=== PATIENT | male | born 1975 | race Caucasian/White ===

== ENCOUNTER 2017-03-18 21:16 | Emergency (ER) | payer OTHER ==
[~2017-03-18] VITALS: Ht 182.9 cm; Wt 68.2 kg
[2017-03-18 21:20] VITALS: BP 149/60; PULSE 71; RESP 20; O2SAT 100
--- NOTE | 2017-03-18 21:36 | ED.REPORT ---
HPI-Trauma Minor / Fall Date of Service Mar 18, 2017 ED Provider: Jensen Nolasco DO Patient is a 41 year old male who presents to the ED due to a fall. Associated symptoms include nausea, vomiting, lip pain, feeling faint and left wrist pain. Per the patient's , the patient looks pale and thinks "he is in shock" as he continued to repeat the same thing. The patient was up at least 2 feet building a play set and had an unwitnessed fall. Patient does not remember the event and is unsure if he hit his head. He denies head pain. Nursing Notes Stated Complaint: BROKEN WRIST, HEAD INJURY, IN SHOCK Chief Complaint: Multiple Trauma/Fall Nursing Notes Reviewed: Yes Allergies: Coded Allergies: gluten (Verified Allergy, Mild, 03/18/17) General Time Seen by MD: 21:34 Chief Complaint Fall Hx Obtained From: Patient, Spouse Arrived By: Walk-in Onset Occurred: Just prior to arrival Symptom Duration: Since onset Caused by: Fall from height... (< 3 feet) Location: Wrist left Quality: Painful Severity: Current: Moderate Recent Healthcare: No recent doctor visit, No recent hospitalization Similar Sx Previous: No Past Medical History Past Medical History none reported Smoking History Unknown if Ever Smoker Social History Other Social History: Good social support, , Lives with children Ambulatory Status Independent Review of Systems Constitutional: Denies: Chills, Fever Respiratory: Denies: Non-productive cough, Shortness of breath Musculoskeletal: Reports: Extremity pain (left wrist) Neurologic: Reports: Lightheaded, Denies: Change LOC, Headache, Problem walking Complete sys rev & neg: except as marked. GI: Reports: Nausea, Vomiting Physical Exam Initial Vital Signs Vital Signs (First) Date Time Temp Pulse Resp B/P Pulse Ox O2 Delivery O2 Flow Rate FiO2 03/18/17 21:20 36.2 71 20 149/60 100 Room Air Initial VS: Reviewed General/Constitutional: Awake, Alert Neck: Atraumatic, Supple, Full range of motion Head / Eyes: Atraumatic, Normocephalic, PERRL, EOMI Respiratory / Chest: Atraumatic, Breath sounds NL, Breath sounds = bilat, No respiratory distress Cardiovascular: Heart rate NL, Regular rhythm, Heart sounds NL Abdomen: Atraumatic, Soft, Non-tender Upper Extremity / MS: Atraumatic, Full range of motion WRIST: extreme tenderness of the left wrist Lower Extremity / Pelvis / MS: Atraumatic, Full range of motion Skin: Atraumatic, Color NL, No rash, Warm, Dry Neurologic: Oriented X3, Speech NL, No motor deficits, No sensory deficits patient reports being able to remember up until the fall but not the fall. Psychiatric: Affect NL, Mood NL Interpretation & Diagnostics Lab Results Interpretation Test 03/18/17 21:30 Hold Purple Top Tube Received (Received) Hold Blue Top Tube Received (Received) Hold Stevens Top Tube Received (Received) Hold Robles Top Tube Received (Received) X-Ray Interpretation Xray Interpretation: IMPRESSION: 1. Mildly comminuted and angulated fracture of the distal radius with articular extension. Dictated by: Ayaz Correa M.D. on 03/18/2017 at 22:13 Approved by: Ayaz Correa M.D. on 03/18/2017 at 22:26 X-Ray Ordered: Wrist left Interpretation / Wet Read by: Interpret - Radiologist CT Head Interpretation IMPRESSION: 1. No acute intracranial abnormality. Dictated by: Ayaz Correa M.D. on 03/18/2017 at 21:58 Approved by: Ayaz Correa M.D. on 03/18/2017 at 22:00 Interpretation / Wet Read by: Interpret - Radiologist Procedures Splint Application - Fx Mgt Time: 22:36 Procedure Performed by: ED physician, Nurse Precise Anatomic Location: left wrist Type of Immobilization: Ortho-glass, Sugar tong Definitive Fracture Care: Pain control, Splint, Follow up > 4 days Post-Procedure / Complications: Cap refill normal, Post splint vascular nl, Post splint neuro nl, Condition improved, Tolerated procedure well, Patient stable Re-Eval/Medical Decision Med Decision/Clinical Course This gentleman still had some anterograde amnesia consistent with concussion. The wrist felt much better after splinting. Pre-severe nausea. This may be multifactorial from the head injury and opiates. Either way he was neurovascularly intact. He had a GCS of 15. Normal brain scan. Cervical spine was cleared clinically. No distracting injury. He was awake sober and lucid. No neck pain and no midline tenderness. CT of his cervical spine not indicated. I consulted with Dr. Mendez. She will follow-up with him next week in the office. Re-Evaluation/Progress #1: Time of Eval: 22:00 Re-Evaluation/Progress Note: Discussed CT results. Re-Evaluation/Progress #2: Time of Eval: 22:20 Re-Evaluation/Progress Note: Discussed X-ray results and plan for follow up outpatient with ortho. Patient understands and agrees to plan. All questions were addressed. Consultation : Referral / Consult Name: Dino Mendez MD Consulted With: Orthopedic Call Returned at: 22:15 Global Climate Change Analyst: Will see in office, Agrees with eval, Agrees with plan Counseled Regarding: Diagnosis, Lab results, Need for follow-up, When/why to return to ED Discharge & Departure Impression: Primary Impression: Left wrist fracture Encounter type: initial encounter Fracture type: closed Qualified Code: S62.102A - Fracture of unspecified carpal bone, left wrist, initial encounter for closed fracture Additional Impressions: Fall Encounter type: initial encounter Qualified Code: W19.XXXA - Unspecified fall, initial encounter Head contusion Encounter type: initial encounter Contusion of head detail: unspecified part of head Qualified Code: S00.93XA - Contusion of unspecified part of head , initial encounter Concussion Encounter type: initial encounter Loss of consciousness presence/duration: without LOC Qualified Code: S06.0X0A - Concussion without loss of consciousness, initial encounter Disposition: Home Discharge Condition All VS Reviewed: Yes Condition: Stable Patient Instructions: Concussion (ED), Splint Care (ED), Wrist Fracture in Adults (ED) Additional Instructions: Your X-ray showed a fracture in your left wrist. Do not drive tonight, as you received pain medication in the ED. Do not engage in any activities that could lead to a second head injury. You can take 1-2 [place] every 6 hours as needed for pain. Do not drink alcohol or drive while taking the medication. Do not combine the pain medication with Acetaminophen. Wear the splint until you are cleared by ortho next week. I spoke with Dr. Mendez, an orthopedic doctor who will see you in the clinic next week for follow up. Call the office on Monday to schedule an appointment. Attached is a referral for her office. Return to emergency department if you develop any new or concerning symptoms. Referrals: Dino Mendez MD Scribe Attestation Portions of this note were transcribed by Hollie Rachel. I, Dr. Beia personally performed the history, physical exam and medical decision-making; I reviewed and confirmed the accuracy of the information in the transcribed note. Signed by: Jazmín Hardy, 03/18/17 and 2219 copies to: Dino Mendez MD, Todd P DO Mar 18, 2017 21:36 Hodan Rachel Mar 18, 2017 22:00
[2017-03-18] MEDS: Ondansetron 2 mg/mL 2 mL Inj IVPUSH PRN ×2 (21:45→23:15)
[2017-03-18] MEDS: HYDROmorphone 0.5 mg/0.5 mL iSecure Syringe IVPUSH PRN ×2 (21:45→22:16)
--- NOTE | 2017-03-18 22:01 | DRSVH ---
PROCEDURE: CT BRAIN WITHOUT CONTRAST ([id number]) INDICATIONS: head injury, perseveration TECHNIQUE: Noncontrast 4.5 mm thick angled axial sections acquired from the foramen magnum to the vertex, with c oronal reformats. COMPARISON: None. FINDINGS: Image quality: Excellent. CSF spaces: Basal cisterns are patent. No extra-axial fluid collections. Ventricles are normal in size and shape. Brain: No intracranial hemorrhage, mass, or mass effect. Michael-white matter interface is preserved. Skull and face: Calvarium and visualized facial bones are intact, without suspicious lesions. Sinuses: Visualized sinuses and mastoids are clear. IMPRESSION: 1. No acute intracranial abnormality. Dictated by: Ayaz Correa M.D. on 03/18/2017 at 21:58 Approved by: Ayaz Correa M.D. on 03/18/2017 at 22:00
[2017-03-18] MEDS ORDERED: HYDROmorphone 1 mg/mL Inj IVPUSH ONE (22:20)
--- NOTE | 2017-03-18 22:27 | DRSVH ---
PROCEDURE: X-RAY LEFT WRIST COMPLETE, MINIMUM THREE VIEWS ([id number]) INDICATIONS: fall with deformity and pain TECHNIQUE: 4 views of the wrist were acquired. COMPARISON: None. FINDINGS: Bones: There is a comminuted impacted fracture of the distal radius extending to the radiocarpal and distal radioulnar joints. There is mild dorsal angulation of the distal component. Scaphoid view: The scaphoid appears intact Soft tissues: There is periarticular soft tissue swelling. No suspicious soft tissue calcifications . IMPRESSION: 1. Mildly comminuted and angulated fracture of the distal radius with articular extension. Dictated by: Ayaz Correa M.D. on 03/18/2017 at 22:13 Approved by: Ayaz Correa M.D. on 03/18/2017 at 22:26
[2017-03-18 22:43] VITALS: BP 132/81; PULSE 70; RESP 18; O2SAT 97
[2017-03-18] MEDS ORDERED: _HYDROcodone/APAP 5-325 mg Tablet PO PRN (22:45)
[2017-03-18] MEDS ORDERED: _Ondansetron ODT 4 mg Tablet PO PRN (23:25)
[2017-03-18 23:53] VITALS: BP 137/73; PULSE 52; RESP 16; O2SAT 95
[2017-03-19 01:01] VITALS: BP 136/94; PULSE 49; RESP 16; O2SAT 95
[2017-03-23] MEDS ORDERED: TERB250T4 PO (11:10)
[2017-03-23] MEDS ORDERED: HYDR-4003 PO (11:10)
== END 2017-03-19 01:00 | disposition home or self-care (01) ==
LOC: SED 21:16
DX: S52.592A Other fractures of lower end of left radius, initial encounter for closed fracture (principal); S06.0X0A Concussion without loss of consciousness, initial encounter; W17.89XA Other fall from one level to another, initial encounter; Y93.89 Activity, other specified; Y99.8 Other external cause status; Y92.017 Garden or yard in single-family (private) house as the place of occurrence of the external cause; Z88.5 Allergy status to narcotic agent; Z88.8 Allergy status to other drugs, medicaments and biological substances
CPT/HCPCS: 25600; 70450; 73110; 96374; 96375; 96376; 99285; J1170; J2250; J2405

== ENCOUNTER → 2017-03-24 | Day surgery (SDC) | payer OTHER ==
[~2017-03-24] VITALS: Ht 181.6 cm; Wt 68.5 kg
[2017-03-24] VITALS (13 sets, daily range): BP systolic 141–173; BP diastolic 70–126; PULSE 49–88; RESP 11–22; O2SAT 96–100
[~2017-03-24] MED LIST: Bupivacaine-MPF 0.5% 30 mL Inj INFILTRATE ONE; CeFAZolin 2 Gm/50 mL D5W IV Premix IV ONE; Dexamethasone 4 mg/mL Inj IVPUSH PRN; EPHEDrine Sulfate 50 mg/mL Inj IVPUSH PRN; HYDR-4003 PO; HYDROcodone-APAP 5-325 mg Tablet PO PRN; HYDROmorphone 1 mg/mL Inj IVPUSH PRN; Lactated Ringer's 1,000 ML IV ONE; Lactated Ringer's 1,000 ML IV SCH; Lactated Ringer's 500 ML IV PRN; MetoCLOpramide 5 mg/mL 2 mL Inj IVPUSH PRN; Ondansetron 2 mg/mL 2 mL Inj IVPUSH PRN; Ondansetron 2 mg/mL 2 mL Inj ONE; Phenylephrine 10,000 mCg/mL Inj IVPUSH PRN; Propofol 10,000 mCg/mL 20 mL Inj ONE; TERB250T4 PO; fentaNYL-PF 50 mCg/mL 2 mL Inj IVPUSH PRN; fentaNYL-PF 50 mCg/mL 2 mL Inj ONE; hydrOXYzine Inj 50 MG/1 mL SDV IM ONE; hydrOXYzine Inj 50 MG/1 mL SDV IM PRN
--- NOTE | 2017-03-24 07:08 | PCM.HPANE ---
Patient Data Date of Service: Mar 24, 2017 Surgeon Admitting Provider: Attending Provider:Dino Mendez MD Primary Care Physician:Wilfredo Sanchez DO Other Provider:Gerardo Quintana Anesthesia Reason for Visit Left Distal Radial Fracture Ht/WT & BMI Height (Feet): 5 Height (Inches): 11.5 Weight (Kilograms): 70.5 Body Mass Index 20.00, 21.00 Allergies Coded Allergies: acetaminophen (Verified Allergy, Unknown, UNKNOWN (FROM PERCOCET), ) gluten (Verified Allergy, Unknown, UNKNOWN (MILD), 03/23/17) oxycodone (Verified Allergy, Unknown, UNKNOWN, 03/23/17) Past Anesthesia History Anesthesia History: Denies:: Fam Anesthesia Reaction, Fam Malignant Hypertherm Diabetes History Hx Diabetes?: No MRSA MRSA: No Medications Reported Medications Hydrocodone-Acetaminophen 5-325 mg 1 Each Tablet1-2 Tablet PO Q6H PRN For Pain Ref 0 03/23/17 Discontinued Reported Medications Terbinafine (Lamisil)250 Mg [id number] Mg PO DAILY 03/23/17 History History of ENT Problems?: Yes HEENT History: Denies:: Abnormal Airway Cataracts Difficult Intubation Dysphagia Glaucoma Hearing Problem Sinus Problem TMJ Denture Type: None Teeth Condition: Within Normal Limits Other HEENT Pertinent History: SMALL LACERATION INNER LIP SUFFERED IN FALL Hx of Heart Problems?: No Cardiovascular History: Denies:: AICD Abdominal Aortic Aneurism Atrial Fibrillation Cardiac Surgery Chest Pain Congestive Heart Failure Coronary Artery Disease Edema Heart Murmur Hypertension Irregular Heartbeat Pacemaker Peripheral Vascular Rheumatic Fever Thrombophlebitis Valvular Heart Disease Hx of Respiratory Problem?: No Respiratory History: Denies:: Asthma COPD Chest Surgery Cough Dyspnea Emphysema Hemoptysis Oxygen Administration Pneumonia Pulmonary Embolism Tuberculosis Use of C-PAP Machine Use of Inhalers / NEBS Hx Neurologic Problems?: Yes Neurological History: Denies:: Alzheimer's Disease CVA Dementia Dizziness Headaches Multiple Sclerosis Parkinson's Disease Peripheral Neuropathy Seizures TIA Other Neurological Pertinent: SUFFERED CLOSED HEAD INJURY (CONCUSSION) IN FALL --POOR MEMORY OF EVENT Hx of GI Problems?: No Gastrointestinal History: Denies:: Cirrhosis Diverticulitis Gall Bladder Disease Gastroesphageal Reflux Gastrointestinal Bleeding Heartburn Hepatitis Hiatal Hernia Liver Disease Rectal Bleeding Hx of Problems?: No Genitourinary History: Denies:: HX of Hemodialysis Kidney Stones Urinary Tract Infection Male Hx: Denies:: Prostate Problems Scrotal Mass Testicular Surgery Skin History: Positive for:: History Skin Disorders? (HX PERSISTANT ATHLETE'S FOOT S/P EXC BASAL CELL CA) Denies:: Pressure Ulcers Hx Musculoskeletal Problems?: Yes Musculoskeletal History: Positive for:: Musculoskeletal Trauma (LT DISTAL RADIUS INTRA-ARTICULAR FX (SPLINTED)=CURRENT PROBLEM) Denies:: Back Injury (C/OF BACK PAIN FROM PRIOR TO FALL) Degenerative Joint Fibromyalgia Joint Replacement Myasthenia Gravis Osteoarthritis Rheumatoid Arthritis Systemic Lupus Hx of Psycho/Social Problems?: No Psycho Social History: Denies:: Anxiety Bipolar Disorder Hx Depression Suicide Attempt Hx Surgeries?: Yes (EXC BASAL CELL CA) Hx Any Other Health Problems?: No Other History: Denies:: Cancer Endocrine Disease Hospitalization Thyroid Disease History Blood Transfusions: Denies:: Accept Blood Products? Blood Transfuse Reaction Blood Transfusions Hx Diabetes: No Hx Alcohol Use: Yes (OCCAS)Hx Substance Use: No Smoking Status: Former Smoker Have You Smoked inLast 12 mo: NoApprox How Many Cigarettes/day: 2 PPD X 15YRS Stop/Bang Treated for Sleep Apnea?: No Do You Have a CPAP Machine?: No S-Snoring: Do You Snore Loudly: No T-Tired: feel tired, fatigued: No O-Obsered: Observed not breath: No P-Blood Pressure: treated: No B- Body Mass Index > 35 kg/m2: No A- Age over 50: No N- Neck Large Circumference: No G- Gender Male: Yes VANCE Total Score: 1 VANCE Risk Assessment: Low Risk, <3 Yes Risk Assessment Category Category 1A: Patient has history of documented sleep apnea, and HAS NOT received any narcotic, sedative or anesthesia administration during this stay. Category 1B: Patient has history of documented sleep apnea, and HAS received any narcotic , sedative or anesthesia administration during this stay Category 2: Patient has SUSPECTED Obstructive Sleep Apnea, and HAS received any narcotic , sedative or anesthesia administration during this stay. Category 3: Patient has SUSPECTED Obstructive Sleep Apnea and HAS NOT received narcotic, sedative or anesthesia administration during this stay. Category 4: Outpatient in Procedural Areas with known sleep apnea or who screen positive for High Risk via the STOP/BANG questionnaire. Exam Exam General Appearance: Alert, Oriented X3, Cooperative, No Acute Distress HEENT/AIRWAY: MP 2 Lungs: Clear to Auscultation, Normal Air Movement Heart: Exam Unremarkable, Regular Rate/Rhythm, No Murmurs/Rubs/Gallops Plan Impression Patient chart reviewed, patient interviewed and anesthestic plan with risks, benefits, and alternatives discussed, and informed consent obtained. NPO per Anesth. Guidelines: Yes ASA Physical Status: ASA1 Normal Healthy Anesthetic Plan: GA Bene/Risks/Altern/Consents: Yes HP Complete Prior to Induction: Yes Abhishek Delgado MD Mar 24, 2017 07:08
[2017-03-24] MEDS: Lactated Ringer's 1,000 ML IV SCH ×4 (07:35→15:14)
--- NOTE | 2017-03-24 11:15 | PCM.ANEP1 ---
Post Anesthesia PACU Phase 1 Assessment Vital Signs Vital Signs Date Time Temp Pulse Resp B/P Pulse Ox O2 Delivery O2 Flow Rate FiO2 03/24/17 11:05 63 12 155/93 98 Room Air 03/24/17 11:00 78 15 173/126 96 Room Air 03/24/17 10:55 83 22 160/86 100 Simple Mask 8 03/24/17 10:52 36.2 82 13 158/86 100 Simple Mask 8 03/24/17 07:54 36.0 88 18 141/71 99 Room Air Anesthetic Administered: GA Level of Alertness: Drowsy, not talking ESQUIVEL's with Equal Strength: Yes Pain: No Nausea or Vomiting: No CV Function & Hydration Stable: Yes Airway Device: Oralpharangeal Airway Oxygen Delivery: Simple Mask Lungs: Clear to Auscultation, Normal Air Movement Dermatome Level: Full Sensation PACU Phase 2 Assessment Complications: No Follow up Care: No Patient Instructions Provided: Yes Abhishek Delgado MD Mar 24, 2017 11:15
[2017-03-24] MEDS: HYDROmorphone 1 mg/mL Inj IVPUSH PRN ×2 (11:20→11:31)
--- NOTE | 2017-03-24 11:22 | DRSVH ---
PROCEDURE: X-RAY FLUORO MINI C-ARM IN SURGERY INDICATIONS: LEFT DISTAL RADIUS COMPARISON: None. FINDINGS: 5 intraoperative images obtained with a mobile image intensifier demonstrating surgical fi xation of the distal left radius. IMPRESSION: 5 intraoperative images obtained with a mobile image intensifier demonstrating surgical fixation of t he distal left radius. Dictated by: Sumanth Gómez M.D. on 03/24/2017 at 11:19 Approved by: Sumanth Gómez M.D. on 03/24/2017 at 11:20
--- NOTE | 2017-03-24 15:32 | OP ---
[address] [address] OPERATIVE REPORT PATIENT: MANASA GALEAS : 1975 MR#: [id number] ADMIT: 03/24/2017 JOB ID: [id number] DATE OF SURGERY: 03/24/2017 PREOPERATIVE DIAGNOSIS(ES): Comminuted left distal radial intra-articular fracture with three or more fragments. ICD 10 code S52.572A. POSTOPERATIVE DIAGNOSIS(ES): Comminuted left distal radial intra-articular fracture with three or more fragments. ICD 10 code S52.572A. PROCEDURE: Open reduction, internal fixation, left distal radial intra-articular fracture with three or more fragments. CPT code 57100. SURGEON: Dino Mendez MD. RUG SIZER: Gelacio Griggs PA-C. Gelacio was an integral portion of the procedure, allowing for retraction and maintenance of reduction of the fracture. IMPLANT UTILIZED: Synthes 2.4 mm locked distal radial volar plate. ANESTHESIA: General. ESTIMATED BLOOD LOSS: Less than 5 mL. DRAINS: None. COMPLICATIONS: None. Sponge and needle count correct. No complications. No specimen to pathology. INDICATIONS: This is a 41-year-old, right-hand dominant male who fell this week off of a chair trying to put up his children's playground equipment onto his outstretched left extremity. Patient sustained a comminuted left distal radial intra-articular fracture with shortening and impaction in both dorsal and volar fragments. He underwent closed reduction by ED staff and was splinted and referred to the office. X-rays in the office showed that the fracture alignment was improved but he still had some loss of volar tilt. PROCEDURE: Under adequate general anesthesia, a well-padded tourniquet was applied to the left upper extremity. Left arm was prepped and draped in sterile fashion. The arm was elevated, exsanguinated, and tourniquet inflated to 250 mmHg. A curvilinear incision was fashioned over the distal radius. Image intensification was utilized to verify the appropriate size of plate for the patient. I used a wide seven-hole distal locking and three-hole proximal plate, with 2.4 mm distal interlocking screws. Incision was fashioned over the distal radius just radial to the flexor carpi radialis. Care was taken to protect the radial artery. Care was taken to protect the median nerve medially. The fascia was incised just radial to the flexor carpi radialis. The flexor pollicis longus was retracted in an ulnar fashion. The pronator quadratus was elevated off the distal radius in an L-shaped fashion over the distal radius with the horizontal component distally taking care not to injure the volar carpal ligaments. The fracture was exposed. A [place] elevator was placed in the fracture to elevate the fracture and restore normal volar tilt. A Synthes 2.4 mm locking distal radial volar plate was then temporarily transfixed to the distal radius with K-wires. The proximal oblong hole was drilled and filled with a 3.5 mm nonlocking screw to compress the plate to the bone. I then removed the two K-wires and just gently adjusted the plate slightly more distally for more optimal positioning and then replaced one of the K-wires. Attention was next turned to the distal plate. The first screw was drilled and filled with a nonlocking screw to compress the plate to the bone with plans of removing that screw and changing it to a locking screw at the end of the case once the plate had been transfixed distally. Additional locking screws were drilled and filled distally, again confirming good position of the screws on AP and lateral views. The two remaining proximal screws in the shaft were drilled and filled with 3.5 mm nonlocking screws since he had good integrity of the bone proximally. The remaining screw holes distally were drilled and filled with 2.4 mm locking screws. The initial nonlocking screw that was placed distally was then changed to a locking screw once the plate had been adequately compressed to the bone. Image intensification confirmed good position of the plate and screws on AP, lateral, and oblique views. Permanent x-rays were taken with image intensification. The wound was irrigated with saline. The wound was infiltrated with 0.5% plain Marcaine over the radial and ulnar aspects of the wound. Care was taken to make sure that no soft tissue, muscle was interposed under the plate. The pronator quadratus was then repaired to the edge of the fascial sleeve with interrupted sutures of 3-0 Vicryl. This covered the plate nicely. Tourniquet was then released. The subcutaneous layers were closed with some interrupted sutures of 3-0 Monocryl. Skin was reapproximated with a running subcuticular suture of 4-0 Monocryl. Mastisol and Steri-Strips were applied. The Monocryl sutures were brought out through the skin and they will need to be clipped flush with the skin upon return to the office. Xeroform dry sterile dressings were applied. The patient was placed in a well-padded short-arm fiberglass splint. The patient was taken to recovery room in stable condition. Sponge and needle count were correct. Postoperatively, he was complaining of some tingling in the fingers in the median nerve distribution and some irritation around the ulnar nerve since he had been keeping the elbow flexed more than 90 degrees. I had him loosen the sling and not place the elbow more than 90 degrees. I also loosened his [place] wraps and also stretched the area around the padding around the volar splint and the patient was more comfortable. I also did explain to him that I placed Marcaine in the wound and some of this has probably infiltrated around the edge of the median nerve. He may expect to have some tingling in the median nerve distribution probably until tomorrow or possibly later due to the compression of the bone, the impact around the bone and the median nerve at that level. He also may be experiencing some tingling from the tourniquet utilized. Again this should continue to improve. The patient was given a prescription for [place] 10/325, and Vistaril 25 mg, as well as Keflex. He is allergic to PERCOCET. He may take the medications as needed. We will see him back in the office in two weeks. At that time sutures will need to be clipped flush with the skin and he probably will be able to be placed in a removable Velcro wrist support and begin wrist range of motion. Patient not to do any heavy gripping or lifting. CC: [facility]
--- NOTE | 2017-03-24 16:57 | DRSVH ---
PROCEDURE: X-RAY LEFT WRIST COMPLETE, MINIMUM THREE VIEWS ([id number]) INDICATIONS: post open reduction of fracture TECHNIQUE: 3 views of the wrist were acquired. COMPARISON: [facility], , XR WRIST 3VW LT, 03/23/2017, 9:23. FINDINGS: Bones: Near anatomic alignment status post ORIF of intra-articular distal radial metaphyseal fracture . Fixation plate and screws in expected position. Scaphoid view: Not requested. Soft tissues: No suspicious soft tissue calcifications. IMPRESSION: Near-anatomic alignment status post ORIF of distal left radial metaphyseal fracture. Dictated by: Israel Haro [facility] Interpreted: Sumanth Gómez MD on 03/24/2017 at 12:41 Approved by: Sumanth Gómez M.D. on 03/24/2017 at 16:56
== END | disposition home or self-care (01) ==
LOC: SAS 07:30
PROVIDERS: ATTEND Orthopaedic Surgery
DX: S52.572A Other intraarticular fracture of lower end of left radius, initial encounter for closed fracture (principal); M41.9 Scoliosis, unspecified; W08.XXXA Fall from other furniture, initial encounter; Y93.89 Activity, other specified; Y92.017 Garden or yard in single-family (private) house as the place of occurrence of the external cause; Y99.8 Other external cause status; Z85.828 Personal history of other malignant neoplasm of skin; Z87.891 Personal history of nicotine dependence
CPT/HCPCS: 25609; 73110; C1713; C1716; J0690; J1100; J1170; J2270; J2405; J2765; J3010; J3410; J7120